=== PATIENT | male | born 1975 | race Caucasian/White ===

== ENCOUNTER 2017-04-01 10:33 | Emergency (ER) | payer SELFPAY ==
[~2017-04-01] VITALS: Ht 170.2 cm; Wt 79.0 kg
[~2017-04-01 10:33] MED LIST: CLEO300C2 PO; DEXA0.5E2 PO; SALS500 PO; TAB-TAB PO; TYLE3 PO; VENTAER INH
[2017-04-01 10:37] VITALS: BP 171/103; PULSE 78; RESP 18; TEMP 97.3; O2SAT 99
--- NOTE | 2017-04-01 11:27 | PD ---
HPI Chief Complaint: Medical Clearance Time Seen by Provider: 11:06 Travel History International Travel<30 days: No Contact w/Intl Traveler<30days: No Traveled to known affect area: No History of Present Illness HPI 42-year-old male complains of right eye irritation, right shoulder pain, back pain, right forearm pain, right hand pain, right ankle pain. Patient states that the symptoms started about 2 weeks ago. Patient states that he may have a piece of metal on the right eye. Patient states that he was working and this metal probably gone to right eye. Patient denies any visual change. Patient states that he has aching pain on upper and low back area, right shoulder area right ankle area. Patient states that he struck his right hand and right forearm against a wall recently and has increasing pain to the areas. Patient denies any focal weakness or numbness of extremity. Patient denies any chest pain or shortness of breath. Patient denies abdominal pain. Patient denies any fever chills. PFSH Past Medical History Cardiovascular Problems: No Diminished Hearing: No Musculoskeletal: No Neurologic: No Respiratory: No Past Surgical History Abdominal Surgery: No Cardiac Surgery: No Ear Surgery: No Endocrine Surgery: No Eye Surgery: No Genitourinary Surgery: No Gynecologic Surgery: No Neurologic Surgery: No Oral Surgery: Yes (WISDOM TEETH REMOVED 03/22) Pacemaker: No Thoracic Surgery: No Other Surgery: Yes (hernia repair 2012) Social History Alcohol Use: Yes (on occasion) Tobacco Use: No Substance Use: Yes (THC daily) Allergies-Medications (Allergen,Severity, Reaction): Coded Allergies: No Known Allergies (Verified , 04/15/10) Reported Meds & Prescriptions Reported Meds & Active Scripts Active Reported Decadron Elixir (Dexamethasone) 0.5 Mg/5 Ml Elx 5 Mg PO BID Ventolin Hfa (Albuterol Sulfate) 18 Gm Aero 1 Puff INH Q4 * SHAKE WELL BEFORE USE * Multivitamin (Multivitamins) 1 Tab Tab 1 Tab PO DAILY Cleocin (Clindamycin HCl) 300 Mg Cap 300 Mg PO TID Disalcid (Salsalate) 500 Mg Tab 1,000 Mg PO BID Tylenol #3 (Acetaminophen/Codeine Phosphate) 300 Mg/30 Mg Tab 1 Tab PO Q6HPRN FOR PAIN Review of Systems General / Constitutional: No: Fever Eyes: Positive: Foreign Body Sensation, No: Visual changes HENT: No: Headaches Cardiovascular: No: Chest Pain or Discomfort Respiratory: No: Shortness of Breath Gastrointestinal: No: Abdominal Pain Genitourinary: No: Dysuria Musculoskeletal: Positive: Pain Skin: No Rash Neurologic: No: Weakness Psychiatric: No: Depression Endocrine: No: Polydipsia Hematologic/Lymphatic: No: Easy Bruising Physical Exam Narrative GENERAL: Well-nourished, well-developed patient. SKIN: Focused skin assessment warm/dry. HEAD: Normocephalic. EYES: No scleral icterus. No injection or drainage. Pupils 3 mm equal reactive. NECK: Supple, trachea midline. No JVD or lymphadenopathy. CARDIOVASCULAR: Regular rate and rhythm without murmurs, gallops, or rubs. RESPIRATORY: Breath sounds equal bilaterally. No accessory muscle use. GASTROINTESTINAL: Abdomen soft, non-tender, nondistended. MUSCULOSKELETAL: No cyanosis, or edema. Patient has mild diffuse tenderness over the right shoulder joint, right forearm and right hand and right ankle. No soft tissue swelling noted. No deformity noted. Full range of motion all joints. BACK: Nontender without obvious deformity. No CVA tenderness. Neurologic exam normal. Data Data Last Documented VS Vital Signs Date Time Temp Pulse Resp B/P Pulse Ox O2 Delivery O2 Flow Rate FiO2 04/01/17 10:59 68 18 04/01/17 10:37 97.3 171/103 99 Orders Chest, Single Ap (04/01/17 11:17) Spine, Thoracic-Ap/Lat/Sw(3vw) (04/01/17 11:17) Spine, Lumbar - Ltd (Ap & Lat) (04/01/17 11:17) Ankle, Complete (Onz7mos) (04/01/17 11:17) Forearm (2vws) (04/01/17 11:17) Hand, Complete ([id number]) (04/01/17 11:17) Shoulder, Limited(2vws) (04/01/17 11:17) [facility] Medical Decision Making Medical Screen Exam Complete: Yes Emergency Medical Condition: Yes Interpretation(s) 1333 PM. Last Impressions Thoracic Spine X-Ray 04/01/17 1117 Signed Impressions: Service Date/Time: Saturday, April 01, 2017 12:14 - CONCLUSION: Degenerative changes without fracture. John Rivera MD Shoulder X-Ray 6/20/17 1117 Signed Impressions: Service Date/Time: Saturday, April 01, 2017 12:12 - CONCLUSION: No acute fracture. John Rivera MD Radius/Ulna X-Ray 04/01/171116 Signed Impressions: Service Date/Time: Saturday, April 01, 2017 12:03 - CONCLUSION: Soft tissue swelling. Kenrick Padilla MD Lumbar Spine X-Ray 04/01/171116 Signed Impressions: Service Date/Time: Saturday, April 01, 2017 12:15 - CONCLUSION: Mild degenerative change without fracture. Questionable spondylolisthesis of the posterior elements at L5. John Rivera MD Hand X-Ray 04/01/171116 Signed Impressions: Service Date/Time: Saturday, April 01, 2017 11:59 - CONCLUSION: 1. Arthritic changes as above. No acute fracture or destructive lesion. Ramsey Garrison MD Chest X-Ray 04/01/171116 Signed Impressions: Service Date/Time: Saturday, April 01, 2017 11:55 - CONCLUSION: 1. No acute cardiopulmonary findings. Ramsey Garrison MD Ankle X-Ray 04/01/171116 Signed Impressions: Service Date/Time: Saturday, April 01, 2017 12:06 - CONCLUSION: Soft tissue swelling laterally without acute fracture. Old avulsion fracture medial malleolus. John Rivera MD Differential Diagnosis Differential diagnosis including strain, fracture, dislocation, eye irritation versus foreign body. Narrative Course 42-year-old male with right eye irritation, multiple joint pain. Procedures Procedure Narrative Right eye stained with fluorescein stain and looked under a Roland lamp light reviews no foreign body and no abrasion. Diagnosis Primary Impression: Strains of multiple ligaments or muscles Additional Impression: Irritation of right eye Patient Instructions: General Instructions Additional Instructions: Ibuprofen as needed for pain. Follow-up with personal physician and orthopedist if persistent problem. Return if worse. Med/Other Pt SpecificInfo: Prescription(s) given Scripts Ibuprofen 600 Mg [id number] Mg PO TID #60 TAB Ref 0 Prov:Meek Angela MD 04/01/17 Disposition: 01 DISCHARGE HOME Condition: Stable Meek Angela MD Apr 01, 2017 11:27
--- NOTE | 2017-04-01 12:18 | RADRPT ---
EXAM DATE/TIME: 04/01/2017 11:55 [facility] COMPARISON: No previous studies available for comparison. INDICATIONS : Short of breath. MEDICAL HISTORY : None. SURGICAL HISTORY : None. ENCOUNTER: Initial ACUITY: 1 day PAIN SCORE: 0/10 LOCATION: Bilateral chest FINDINGS: A single view of the chest demonstrates the lungs to be symmetrically aerated without evidence of mas s, infiltrate or effusion. The cardiomediastinal contours are unremarkable. Osseous structures are intact. CONCLUSION: 1. No acute cardiopulmonary findings. Ramsey Garrison MD on April 01, 2017 at 12:15 Board Certified Radiologist. This report was verified electronically.
--- NOTE | 2017-04-01 12:26 | RADRPT ---
EXAM DATE/TIME: 04/01/2017 12:06 [facility] COMPARISON: No previous studies available for comparison. INDICATIONS : Right ankle pain after twisting. MEDICAL HISTORY : None. SURGICAL HISTORY : None. ENCOUNTER: Initial ACUITY: 4 - 6 days PAIN SCORE: 8/10 LOCATION: Right lateral ankle FINDINGS: Three view exam was performed of the right ankle. The bony structures are in normal alignment. No e vidence of fracture, dislocation. There is soft tissue swelling laterally. Old avulsion fracture med ial malleolus. The ankle mortise is intact. No radiopaque foreign bodies are seen. Bony mineralizat ion is normal. CONCLUSION: Soft tissue swelling laterally without acute fracture. Old avulsion fracture medial malleolus. John Rivera MD on April 01, 2017 at 12:23 Board Certified Radiologist. This report was verified electronically.
--- NOTE | 2017-04-01 12:27 | RADRPT ---
EXAM DATE/TIME: 04/01/2017 12:12 [facility] COMPARISON: No previous studies available for comparison. INDICATIONS : No known injury - right shoulder pain/grinding. MEDICAL HISTORY : None. SURGICAL HISTORY : None. ENCOUNTER: Initial ACUITY: 1 day PAIN SCORE: 8/10 LOCATION: Right shoulder FINDINGS: Two view examination of the right shoulder demonstrates no evidence of fracture or dislocation. The glenohumeral and acromioclavicular joints are maintained. Bony mineralization is normal. CONCLUSION: No acute fracture. John Rivera MD on April 01, 2017 at 12:24 Board Certified Radiologist. This report was verified electronically.
--- NOTE | 2017-04-01 12:28 | RADRPT ---
EXAM DATE/TIME: 04/01/2017 12:14 [facility] COMPARISON: No previous studies available for comparison. INDICATIONS : Mid back pain. No known injury. MEDICAL HISTORY : None. SURGICAL HISTORY : None. ENCOUNTER: Initial ACUITY: 1 day PAIN SCORE: 0/10 LOCATION: Bilateral mid back FINDINGS: There is normal alignment of the thoracic vertebral bodies. Vertebral body height is maintained. No evidence of fracture or subluxation. Degenerative changes mid to lower thoracic spine. Pedicles are intact at all levels. The paravertebral reflections are not thickened. CONCLUSION: Degenerative changes without fracture. John Rivera MD on April 01, 2017 at 12:25 Board Certified Radiologist. This report was verified electronically.
--- NOTE | 2017-04-01 12:29 | RADRPT ---
EXAM DATE/TIME: 04/01/2017 12:15 [facility] COMPARISON: No previous studies available for comparison. INDICATIONS : Low back pain. No known injury. MEDICAL HISTORY : None. SURGICAL HISTORY : None. ENCOUNTER: Initial ACUITY: 1 day PAIN SCORE: 0/10 LOCATION: Bilateral low back FINDINGS: Two view examination was performed. There are five non-rib bearing vertebral bodies. The vertebral bodies are in normal alignment without evidence of subluxation or scoliosis. The disc spaces are peter ntained. The pedicles are intact. Mild degenerative changes lower lumbar spine. Slight lucency poste rior elements at L5. Bony mineralization is normal. No fracture is identified. CONCLUSION: Mild degenerative change without fracture. Questionable spondylolisthesis of the posterior elements a t L5. John Rivera MD on April 01, 2017 at 12:26 Board Certified Radiologist. This report was verified electronically.
--- NOTE | 2017-04-01 12:39 | RADRPT ---
EXAM DATE/TIME: 04/01/2017 11:59 [facility] COMPARISON: CHEST SINGLE AP, April 01, 2017, 11:55. INDICATIONS : Right hand pain. No known injury. MEDICAL HISTORY : None. SURGICAL HISTORY : None. ENCOUNTER: Initial ACUITY: 1 day PAIN SCORE: 0/10 LOCATION: Right hand FINDINGS: The examination demonstrates arthritic changes within the metatarsal phalangeal joint of the thumb as well as the distal interphalangeal joints of the fourth and fifth digits. No acute fracture is seen. The alignment is good. No retained foreign body is seen. CONCLUSION: 1. Arthritic changes as above. No acute fracture or destructive lesion. Ramsey Garrison MD on April 01, 2017 at 12:35 Board Certified Radiologist. This report was verified electronically.
--- NOTE | 2017-04-01 12:51 | RADRPT ---
EXAM DATE/TIME: 04/01/2017 12:03 [facility] COMPARISON: No previous studies available for comparison. INDICATIONS : Right arm pain. No known injury. MEDICAL HISTORY : None. SURGICAL HISTORY : None. ENCOUNTER: Initial ACUITY: 1 day PAIN SCORE: 0/10 LOCATION: Right forearm FINDINGS: Two view examination of the right forearm demonstrates no evidence of fracture or dislocation. Bony mineralization is normal. There is focal soft tissue swelling at the dorsal proximal aspect of the fo rearm.. CONCLUSION: Soft tissue swelling. Kenrick Padilla MD on April 01, 2017 at 12:46 Board Certified Radiologist. This report was verified electronically.
[2017-04-01] MEDS ORDERED: IBUP-232 PO (13:36)
== END 2017-04-01 14:02 | disposition home or self-care (01) ==
LOC: NEPD 10:33
DX: S46.911A Strain of unspecified muscle, fascia and tendon at shoulder and upper arm level, right arm, initial encounter (principal); S56.911A Strain of unspecified muscles, fascia and tendons at forearm level, right arm, initial encounter; S96.911A Strain of unspecified muscle and tendon at ankle and foot level, right foot, initial encounter; H57.11 Ocular pain, right eye; X58.XXXA Exposure to other specified factors, initial encounter; F12.90 Cannabis use, unspecified, uncomplicated
CPT/HCPCS: 71010; 72072; 72100; 73030; 73090; 73130; 73610; 99284